=== PATIENT | female | born 1970 | race Caucasian/White ===

== ENCOUNTER → 2020-11-26 | Outpatient (CLI) | payer OTHER ==
[~2020-11-26] MED LIST: CYCL5TAB PO; MELO7.5T29 PO; TRAM50TA PO
--- NOTE | 2020-11-26 17:12 | RAD ---
L-spine 3 views INDICATION: Disability determination COMPARISON: 08/25/2014 L-spine x-rays FINDINGS: There has been interval progression in rightward convexity scoliotic curvature of the lumbar spine wi th a Holliday angle now of 18.8 degrees compared with 12.5 degrees as measured from the superior endplate of L1 to the inferior endplate of L4, 5 lumbar type vertebrae recognized. Bones are diffusely demineralized and show no fracture or aggressive appearing osseous lesions. There is multilevel disc degenerative change most conspicuous at L1-L2 and at L5-S1. The facets show mild hypertrophic change, best appreciated at L4-L5 and L5-S1. Because of this, there is moderate bilateral foraminal stenosis at L5-S1. No significant bony spinal stenosis is identified on the current exam. Soft tissues show scattered arterial calcifications in the abdominal aorta. Visualized sacroiliac joints and hips are unremarkable. IMPRESSION: Worsening dextroscoliosis scoliosis in the setting of multilevel lumbar spinal degenerative changes. No fracture or aggressive bony lesions. Electronically signed by: Dusty Olivier MD (11/26/2020 5:10 PM) [id number]
== END ==
LOC: RAD 10:16
PROVIDERS: ATTEND Internal Medicine Pulmonary Disease
DX: M47.816 Spondylosis without myelopathy or radiculopathy, lumbar region (principal); M41.86 Other forms of scoliosis, lumbar region
CPT/HCPCS: 72100